=== PATIENT | male | born 1940 | race Caucasian/White ===

== ENCOUNTER 2019-01-12 10:50 | Emergency (ER) | payer MEDICARE, MEDICAID ==
[~2019-01-12] VITALS: Ht 182.9 cm; Wt 82.0 kg
[2019-01-12] MEDS ORDERED: IBUPROFEN 600MG TABLET PO ONE (11:15)
[2019-01-12 12:10] VITALS: BP 148/62
== END 2019-01-12 12:28 | disposition home or self-care (01) ==
LOC: ER 10:50
DX: J00 Acute nasopharyngitis [common cold] (principal); R51 Headache; E11.9 Type 2 diabetes mellitus without complications; I10 Essential (primary) hypertension; E78.00 Pure hypercholesterolemia, unspecified
CPT/HCPCS: 99284

== ENCOUNTER 2023-01-06 12:43 | Emergency (ER) | payer MEDICARE, MEDICAID | END 2023-01-08 | disposition left against medical advice (07) | LOC: ER 01-08 05:25 | DX: Z53.21 Procedure and treatment not carried out due to patient leaving prior to being seen by health care provider (principal) ==